=== PATIENT | male | born 1965 | race Caucasian/White ===

== ENCOUNTER 2017-01-15 09:17 | Emergency (ER) | payer MEDICAID ==
[2017-01-15] MEDS ORDERED: Lidocaine/Epineph/Tetraca SOL* (LET solution) 4 ML BTL TOPICAL ONE ×2 (09:46)
[2017-01-15] MEDS ORDERED: Lidocaine 1%* 5 ML VIAL ONE ×2 (10:04)
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
== END 2017-01-15 10:48 | disposition home or self-care (01) ==
LOC: UCCORT 09:17
DX: S61.213A Laceration without foreign body of left middle finger without damage to nail, initial encounter (principal); W26.8XXA Contact with other sharp object(s), not elsewhere classified, initial encounter; Y92.9 Unspecified place or not applicable; Z88.5 Allergy status to narcotic agent; Z87.891 Personal history of nicotine dependence
CPT/HCPCS: 12001; 99212; G0463

== ENCOUNTER 2017-04-02 16:31 | Emergency (ER) | payer OTHER ==
[2017-04-02 18:47] VITALS: BP 133/101
[2017-04-02] MEDS ORDERED: BSS OPTH.SOL* BTL ONE (18:55)
[2017-04-02] MEDS ORDERED: Tetracaine 0.5% OPTH.SOL 4 ML* 1 DROP BTL ONE (18:55)
[2017-04-02] MEDS ORDERED: Fluorescein Sod TOPICAL 0.6* 0.6 MG TEST OPHTHALMIC ONE (18:55)
[2017-04-02] MEDS ORDERED: Tetracaine 0.5% OPTH.SOL 4 ML* 1 DROP BTL LEFT EYE ONE (19:05)
[2017-04-02] MEDS ORDERED: Fluorescein Sodium TOPICAL* 1 MG TEST OPHTHALMIC ONE (19:05)
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
== END 2017-04-02 19:35 | disposition home or self-care (01) ==
LOC: UCCORT 16:31
DX: S05.02XA Injury of conjunctiva and corneal abrasion without foreign body, left eye, initial encounter (principal); X58.XXXA Exposure to other specified factors, initial encounter; Y93.H3 Activity, building and construction; Y92.9 Unspecified place or not applicable; Z88.5 Allergy status to narcotic agent; Z87.891 Personal history of nicotine dependence
CPT/HCPCS: 99212; A9270-GY; G0463